=== PATIENT | male | born 1960 | race Caucasian/White ===

== ENCOUNTER 2018-07-01 08:01 | Emergency (ER) | payer OTHER ==
[~2018-07-01] VITALS: Ht 182.8 cm; Wt 90.7 kg
[~2018-07-01 08:01] MED LIST: BACTRIM DS 8001 TA1 PO; BACTROBAN CREAM15 GM PO; VICODIN 5/500 505 MG PO
[2018-07-01] MEDS ORDERED: DOXYCYCLINE100 M3 PO (08:38)
== END 2018-07-01 08:50 | disposition home or self-care (01) ==
LOC: ED 08:01
DX: S30.861A Insect bite (nonvenomous) of abdominal wall, initial encounter (principal); L03.311 Cellulitis of abdominal wall; Z79.2 Long term (current) use of antibiotics; W57.XXXA Bitten or stung by nonvenomous insect and other nonvenomous arthropods, initial encounter; Y93.89 Activity, other specified; Y92.89 Other specified places as the place of occurrence of the external cause; Y99.8 Other external cause status

== ENCOUNTER 2023-10-26 08:54 | Emergency (ER) | payer MEDICARE ==
[~2023-10-26] VITALS: Ht 182.8 cm; Wt 89.8 kg
[~2023-10-26 08:54] MED LIST changes: +DOXYCYCLINE100 M3 PO
[2023-10-26 09:40] LABS: BASO # 0.1 10*3/uL (0.0-0.1); BASO % 0.9 % (0.0-1.0); EOS # 0.2 10*3/uL (0.0-0.4); EOS % 2.2 % (1.0-4.0); HEMATOCRIT 46.3 % (42.0-52.0); LYMPH # 1.9 10*3/uL (1.3-4.4); LYMPH % 24.2 % (27.0-41.0); MEAN CELL VOLUME 91.5 fl (80.0-94.0); MEAN CORPUSCULAR HGB CONC 33.9 g/dl (33.0-37.0); MONO # 0.7 10*3/uL (0.1-1.0); MONO % 9.1 % (3.0-9.0); NEUT % 63.5 % (47.0-73.0); PLATELET COUNT AUTOMATED 233 10*3/uL (130-400); RED BLOOD COUNT 5.06 10*6/uL (4.50-5.90); RED CELL DISTRI WIDTH 13.8 % (0-14.5); WHITE BLOOD COUNT 7.8 10*3/uL (4.8-10.8)
[2023-10-26 09:50] LABS: ACT PARTIAL THROMBO TIME 26.2 SECONDS (20.0-32.1)
[2023-10-26] MEDS ORDERED: ZESTRIL10 MG PO (09:55)
[2023-10-26] MEDS ORDERED: NAPROXEN500 M1 PO (09:56)
[2023-10-26 09:58] LABS: ALKALINE PHOSPHATASE 55 U/L (46-116); BUN 14 mg/dl (9-23); CHLORIDE 106 mmol/L (98-107); LIPASE 37 U/L (12-53); POTASSIUM 3.8 mmol/L (3.4-5.1); SGPT/ALT 24 U/L (5-49); TOTAL PROTEIN 7.9 gm/dL (6.0-8.0)
== END 2023-10-26 12:19 | disposition home or self-care (01) ==
LOC: ED 08:54
PROVIDERS: Emergency Medicine
DX: I10 Essential (primary) hypertension (principal); R07.89 Other chest pain; M19.90 Unspecified osteoarthritis, unspecified site

== ENCOUNTER → 2023-11-11 | Outpatient (CLI) | payer MEDICARE ==
[~2023-11-11] MED LIST changes: +ALLOPURINOL300 MG PO; +AMLODIPINE BESYL5 MG PO; +LIPITOR40 MG PO; +NAPROXEN500 M1 PO; +ZESTRIL40 MG PO
== END | disposition home or self-care (01) ==
LOC: CARD 12:51
PROVIDERS: ATTEND Family Medicine
DX: R07.9 Chest pain, unspecified (principal)

== ENCOUNTER → 2024-03-21 | Outpatient (CLI) | payer MEDICARE ==
[~2024-03-21] MED LIST changes: +GADOTERATE MEGLUMINE 10 MMOL/20 ML VIAL IV ONE
== END | disposition home or self-care (01) ==
LOC: MRI 08:28
PROVIDERS: ATTEND Family Medicine
DX: N40.0 Benign prostatic hyperplasia without lower urinary tract symptoms (principal); R97.20 Elevated prostate specific antigen [PSA]

== ENCOUNTER → 2025-01-24 | Outpatient (CLI) | payer MEDICARE ==
[~2025-01-24] MED LIST changes: -GADOTERATE MEGLUMINE 10 MMOL/20 ML VIAL IV ONE
== END | disposition home or self-care (01) ==
LOC: CARD 07:10
PROVIDERS: ATTEND Family Medicine
DX: I10 Essential (primary) hypertension (principal)